=== PATIENT | male | born 1960 | race Two or more races ===

== ENCOUNTER 2017-04-19 21:50 | Emergency (ER) | payer SELFPAY ==
--- NOTE | 2017-04-19 22:02 | EDM.PDOC ---
ED HPI GENERAL MEDICAL PROBLEM - General Chief Complaint: Neuro Symptoms/Deficits Stated Complaint: STROKE LIKE SYMPTOMS Time Seen by Provider: 04/19/17 21:50 Source of Information: Reports: Patient, Family (), RN Notes Reviewed History Limitations: Reports: No Limitations - History of Present Illness INITIAL COMMENTS - FREE TEXT/NARRATIVE: The patient states that he developed left upper extremity and left lower 70 weakness around 16:00 Mountain Time, [place] a casino. He has had difficulty walking due to the left lower extremity weakness. No headache. No difficulty with speech or understanding language (Amharic is his first language). The patient states that he has a history of both hypertension and dyslipidemia, but that he has not received any treatment for the past 7 or 8 years. The patient is right-handed. The patient is not of PCP. - Related Data Allergies Allergy/AdvReac Type Severity Reaction Status Date / Time Penicillins Allergy Shortness Verified 04/19/17 22:00 of Breath Home Meds: Home Meds . [No Known Home Meds] 04/19/17 [History] Past Medical History Cardiovascular History: Reports: High Cholesterol, Hypertension - Past Surgical History HEENT Surgical History: Reports: Tonsillectomy GI Surgical History: Reports: Cholecystectomy Neurological Surgical History: Reports: Lumbar Spine (Discectomy and fusion) Social & Family History - Tobacco Use Smoking Status *Q: Current Every Day Smoker Years of Tobacco use: 41 Packs/Tins Daily: 1 - Alcohol Use Alcohol Use History: No - Recreational Drug Use Recreational Drug Use: No - Living Situation & Occupation Living situation: Reports: , with Spouse, with Family (Son, daughter-in- law) Occupation: Employed (Insulator) ED ROS GENERAL - Review of Systems Review Of Systems: See Below Constitutional: Reports: No Symptoms HEENT: Reports: No Symptoms Respiratory: Reports: No Symptoms Cardiovascular: Reports: No Symptoms Endocrine: Reports: No Symptoms GI/Abdominal: Reports: No Symptoms : Reports: No Symptoms Musculoskeletal: Reports: No Symptoms Skin: Reports: No Symptoms Neurological: Reports: No Symptoms Psychiatric: Reports: No Symptoms Hematologic/Lymphatic: Reports: No Symptoms Immunologic: Reports: No Symptoms ED EXAM, NEURO - Physical Exam Exam: See Below Exam Limited By: No Limitations General Appearance: Alert, WD/WN, No Apparent Distress Eye Exam: Bilateral Eye: Normal Inspection Ears: Normal External Exam, Hearing Grossly Normal Nose: Normal Inspection, No Blood Throat/Mouth: Normal Inspection, Normal Lips, Normal Voice, No Airway Compromise Head Exam: Atraumatic, Normocephalic Neck: Normal Inspection, Full Range of Motion Respiratory/Chest: No Respiratory Distress, Lungs Clear, Normal Breath Sounds, No Accessory Muscle Use Cardiovascular: Normal Peripheral Pulses, Regular Rate, Rhythm, No Edema, No Gallop, No JVD, No Murmur, No Rub GI/Abdominal: Normal Bowel Sounds, Soft, Non-Tender, No Organomegaly, No Distention, No Abnormal Bruit, No Mass (Male) Exam: Deferred Rectal (Males) Exam: Deferred Neurological: Alert, Oriented x 3, Other (3/6 strength in the left upper extremity and 3/6 strength of the left lower extremity, ring hip flexion, knee extension, dorsiflexion and plantar flexion. No sensory loss in either extremity.) Back Exam: Normal Inspection, Full Range of Motion, NT Extremities: Normal Inspection, Normal Range of Motion, No Pedal Edema, Normal Capillary Refill Psychiatric: Normal Affect Skin Exam: Warm, Dry, Intact, Normal Color, No Rash EKG INTERPRETATION EKG Date: 04/19/17 Time: 21:59 Rhythm: NSR Rate (Beats/Min): 73 [place]: Normal P-Wave: Present QRS: Normal ST-T: Normal QT: Normal Comparison: NA - No Prior EKG Course - Vital Signs Last Recorded V/S: Last Vital Signs Temp 36.4 C 04/19/17 21:51 Pulse 82 04/19/17 21:51 Resp 16 04/19/17 21:51 BP Pulse Ox 95 04/19/17 21:51 - Orders/Labs/Meds Orders: Active Orders 24 hr Category Date Time Status EKG Documentation Completion [RC] STAT Care 04/19/17 21:55 Active Chest 2V [CR] Stat Exams 04/19/17 21:56 Taken Head wo Cont [CT] Stat Exams 04/19/17 21:55 Taken Labs: Laboratory Tests 04/19/17 04/19/17 04/19/17 Range/Units 21:59 21:59 21:59 WBC 13.29 H (4.23-9.07) K/mm3 RBC 5.23 (4.63-6.08) M/mm3 Hgb 16.0 (13.7-17.5) gm/L Hct 46.0 (40.1-51.0) % MCV 88.0 (79.0-92.2) fl MCH 30.6 (25.7-32.2) pg MCHC 34.8 (32.2-35.5) g/dl RDW Std Deviation 48.3 H (35.1-43.9) fL Plt Count 314 (163-337) K/mm3 MPV 10.3 (9.4-12.3) fl Neutrophils % (Manual) 68 H (40-60) % Band Neutrophils % 0 (0-10) % Lymphocytes % (Manual) 20 (20-40) % Atypical Lymphs % 4 % Monocytes % (Manual) 5 (2-10) % Eosinophils % (Manual) 3 (0.8-7.0) % Basophils % (Manual) 0 L (0.2-1.2) Platelet Estimate Adequate Plt Morphology Comment Normal RBC Morph Comment Normal PT 10.4 (8.0-13.0) SECONDS INR 0.96 APTT 25 (22-36) SECONDS Sodium 140 (136-145) mEq/L Potassium 3.2 L (3.5-5.1) mEq/L Chloride 103 (98-107) mEq/L Carbon Dioxide 27 (21-32) mEq/L Anion Gap 13.2 (5-15) BUN 13 (7-18) mg/dL Creatinine 1.1 (0.7-1.3) mg/dL Est Cr Clr Drug Dosing 69.28 mL/min Estimated GFR (MDRD) > 60 (>60) mL/min BUN/Creatinine Ratio 11.8 L (14-18) Glucose 123 H (74-106) mg/dL Calcium 8.8 (8.5-10.1) mg/dL Total Bilirubin 0.4 (0.2-1.0) mg/dL AST 13 L (15-37) U/L ALT 21 (16-63) U/L Alkaline Phosphatase 92 (46-116) U/L Total Protein 7.8 (6.4-8.2) g/dl Albumin 3.8 (3.4-5.0) g/dl Globulin 4.0 gm/dL Albumin/Globulin Ratio 1.0 (1-2) - Radiology Interpretation Free Text/Narrative:: Two-view chest radiograph appears to be grossly normal. Cardiac silhouette is within normal limits. No pulmonary vascular congestion. No pleural effusions. No focal infiltrate. No pneumothorax. Formal read per the Radiologist pending. CT of the head without contrast is read by [facility] as "No acute intracranial abnormality is appreciated." - Re-Assessments/Exams Free Text/Narrative Re-Assessment/Exam: 04/20/17 00:[address] Bethea, Neurologist at [facility] at 00:05. She agrees with transferring the patient to the Hospitalist service with her on consult. No intervention. Case then discussed with Dr. Stubbs, Hospitalist at [facility] at 00:10. He accepts the patient for direct admission. The patient will go by ambulance. Departure - Departure Time of Disposition: : Disposition: DC/Tfer to Acute Hospital 02 Condition: Fair Clinical Impression: Acute ischemic stroke - Discharge Information - My Orders Last 24 Hours: My Active Orders 04/19/17 21:55 EKG Documentation Completion [RC] STAT Head wo Cont [CT] Stat 04/19/17 21:56 Chest 2V [CR] Stat - Assessment/Plan Last 24 Hours: My Active Orders 04/19/17 21:55 EKG Documentation Completion [RC] STAT Head wo Cont [CT] Stat 04/19/17 21:56 Chest 2V [CR] Stat
[2017-04-20] MEDS ORDERED: Lisinopril 10 MG Tab PO ONE (00:21)
[2017-04-20 00:35] VITALS: BP 198/100
[2017-04-20] MEDS ORDERED: Simvastatin 40 MG Tab PO SCH ×2 (00:46→21:00)
[2017-04-20] MEDS ORDERED: Simvastatin 40 MG Tab PO ONE (00:57)
--- NOTE | 2017-04-20 13:12 | CR ---
Chest: Two views of the chest were obtained. Comparison: No previous chest x-ray. Heart size and mediastinum are normal. Lungs are clear. Bony structures appear within normal limits for the patient's age. Surgical clips are seen within the upper abdomen. Impression: 1. Nothing acute is identified on two-view chest x-ray. Diagnostic code #2
--- NOTE | 2017-04-20 13:12 | CT ---
Head CT Technique: Multiple axial sections through the brain were obtained. Intravenous contrast was not utilized. Comparison: No previous intracranial imaging. Findings: Ventricles along with basal cisterns and sulci over the convexities are within normal limits. Well-defined low-density area seen within the left frontal region measuring about 1.0 cm in size. Several other smaller low density areas are seen within the basal ganglia which are felt compatible with old lacunar infarcts. Mild areas of diminished density noted within the periventricular white matter. No discrete calvarial abnormality is seen. There is prominent mucosal thickening within both frontal sinuses and ethmoid sinuses as well as right maxillary sinus. Impression: 1. Sinus findings. This most likely represents chronic sinusitis if patient has no symptoms of acute sinusitis. 2. Low-density areas within the brain most likely representing small vessel ischemic demyelination change and old infarcts. Differential also includes old MS. 3. Nothing acute is otherwise seen on noncontrast head CT study. Note: If patient's symptoms warrant further intracranial evaluation, MRI could then be considered. Diagnostic code #3 I agree with preliminary report issued by [employer] ([facility] preliminary report dictated on 04/19/2017 at 11:23 PM Central Time)
== END 2017-04-20 01:00 ==
LOC: JD.ED 21:50
DX: I63.9 Cerebral infarction, unspecified (principal); I10 Essential (primary) hypertension; E78.00 Pure hypercholesterolemia, unspecified; Z88.0 Allergy status to penicillin; Z90.49 Acquired absence of other specified parts of digestive tract; Z98.890 Other specified postprocedural states
CPT/HCPCS: 36415; 70450; 71020; 80053; 85025; 85610; 85730; 93005; 99285; A9270